=== PATIENT | female | born 1995 | race Caucasian/White ===

== ENCOUNTER 2018-03-01 23:46 | Emergency (ER) | END 2018-03-02 03:44 | disposition home or self-care (01) ==

== ENCOUNTER 2018-11-03 22:45 | Emergency (ER) | payer OTHER ==
[~2018-11-03] VITALS: Ht 160 cm; Wt 77.2 kg
[~2018-11-03 22:45] MED LIST: IBUP-1542 PO
[2018-11-03 23:02] VITALS: Ht 160 cm; Wt 77.2 kg
[2018-11-03] MEDS ORDERED: ACETAMINOPHEN 500 MG TAB PO STA (23:31)
--- NOTE | 2018-11-03 23:31 | ERD ---
ER Documentation Chief Complaint Chief Complaint C/O PELVIC CRAMPING X2 DAYS, 6 WEEKS PREG, - VB HPI This is a 23-year-old female presents emergency department with complaints of pelvic cramping, pelvic pain for about 2 days. Stated that she is 6 weeks . Stated that she visited her OB doctor 2 weeks ago and was informed t hat her is normal but was not told of her expected date of delivery.. LMP: 10/06/2018. DAVID: Unknown. Denies headache, head injury, loss of consciousness, dizziness, neck pain, neck stiffness, throat pain, difficulty swallowing, difficulty breathing lying flat, shoulder pain, chest pain, back pain, nausea, vomiting, constipation, diarrhea, urinary symptoms, loss of bowel and bladder control, trauma, injury, falls, difficulty walking due to pain, numbness or tingling sensation, calf pain, recent travel, recent major surgery in the last 3 weeks, calf pain, recent long travel, recent exposure to any illness, recent antibiotic use in the last 3 months, fever, chills, seizures. Past medical history: Surgical history: Social: Denies smoking, use of alcoholic beverages, use of illegal drugs. ROS All systems reviewed and are negative except as per history of present illness. Medications Home Meds Active Scripts Vit No.124/Iron/FA ( Vitamin Tablet) 1 Each Tablet, 1 EACH PO DAILY, #30 TAB Prov:SASCHA ALVARENGA F 11/04/18 Acetaminophen* (Tylophen*) 500 Mg Capsule, 1 CAP PO Q6H PRN for PAIN AND OR ELEVATED TEMP, #20 CAP Prov:GOBANHANSAR F 11/04/18 Ibuprofen* (Motrin*) 600 Mg Tab, 600 MG PO Q6H PRN for PAIN AND OR ELEVATED TEMP, #20 TAB Prov:JOSE E CERNA MD 03/02/18 Allergies Allergies: Coded Allergies: No Known Allergies (Unverified Allergy, Unknown, 08/01/14) PMhx/Soc Medical and Surgical Hx: pt denies Medical Hx, pt denies Surgical Hx Hx Alcohol Use: No Hx Substance Use: No Hx Tobacco Use: No Smoking Status: Never smoker Physical Exam Vitals Physical Exam Const: No acute distress Head: Atraumatic Eyes: Normal Conjunctiva ENT: Normal External Ears, Nose and Mouth. Neck: Full range of motion. No meningismus. Resp: Clear to auscultation bilaterally Cardio: Regular rate and rhythm, no murmurs Abd: Soft, non tender, non distended. Normal bowel sounds. Negative Curtis sign but negative Rosette sign (heel jar test). Negative psoas sign. Negative Rovsing sign. No CVA tenderness. Ambulatory with steady gait without pain to lower abdomen. Skin: No petechiae or rashes. Color appears normal for ethnicity. No skin tenting. No signs of severe dehydration. Back: No midline or flank tenderness Ext: No cyanosis, or edema. There is no lower extremity edema. Neur: Awake and alert. No neurological deficits. Psych: Normal Mood and Affect Result Diagram: 11/03/18 6447 Results 24 hrs Laboratory Tests Test 11/03/18 23:39 White Blood Count 6.6 10^3/ul Red Blood Count 4.78 10^6/ul Hemoglobin 10.9 g/dl Hematocrit 35.8 % Mean Corpuscular Volume 74.9 fl Mean Corpuscular Hemoglobin 22.8 pg Mean Corpuscular Hemoglobin Concent 30.4 g/dl Red Cell Distribution Width 17.0 % Platelet Count 215 10^3/UL Mean Platelet Volume 10.0 fl Immature Granulocytes % 0.300 % Neutrophils % 63.9 % Lymphocytes % 25.6 % Monocytes % 7.5 % Eosinophils % 2.4 % Basophils % 0.3 % Nucleated Red Blood Cells % 0.0 /100WBC Immature Granulocytes # 0.020 10^3/ul Neutrophils # 4.2 10^3/ul Lymphocytes # 1.7 10^3/ul Monocytes # 0.5 10^3/ul Eosinophils # 0.2 10^3/ul Basophils # 0.0 10^3/ul Nucleated Red Blood Cells # 0.0 10^3/ul Urine Color YELLOW Urine Clarity SLIGHTLY CLOUDY Urine pH 5.0 Urine Specific [place] 1.018 Urine Ketones NEGATIVE mg/dL Urine Nitrite NEGATIVE mg/dL Urine Bilirubin NEGATIVE mg/dL Urine Urobilinogen NEGATIVE mg/dL Urine Leukocyte Esterase TRACE Ingrid/ul Urine Microscopic RBC 1 /HPF Urine Microscopic WBC 2 /HPF Urine Squamous Epithelial Cells FEW /HPF Urine Hemoglobin NEGATIVE mg/dL Urine Glucose NEGATIVE mg/dL Urine Total Protein NEGATIVE mg/dl Sodium Level 138 mmol/L Potassium Level 3.6 mmol/L Chloride Level 106 mmol/L Carbon Dioxide Level 23 mmol/L Anion Gap 9 Blood Urea Nitrogen 10 mg/dl Creatinine 0.68 mg/dl Est Glomerular Filtrat Rate mL/min > 60 mL/min Glucose Level 100 mg/dl Calcium Level 9.4 mg/dl Total Bilirubin 0.4 mg/dl Direct Bilirubin 0.00 mg/dl Indirect Bilirubin 0.4 mg/dl Aspartate Amino Transf (AST/SGOT) 29 IU/L Alanine Aminotransferase (ALT/SGPT) 33 IU/L Alkaline Phosphatase 88 IU/L Total Protein 7.7 g/dl Albumin 4.3 g/dl Globulin 3.40 g/dl Albumin/Globulin Ratio 1.26 Amylase Level 77 U/L Lipase 105 U/L Beta HCG, Quantitative 6184.0 mIU/ml Current Medications Medications Dose Sig/Nurys Start Time Status Last (Trade) Ordered Route PRN Stop Time Admin Dose Reason Admin 500 mg ONCE STAT 11/03/18 DC 11/03/18 Acetaminophen PO 23:31 23:46 (Tylenol 11/03/18 23:33 Tab) Procedures/MDM Diagnostic tests: Urinalysis: Reviewed. Culture urine: Sent. Beta hCG quantitative: 6184. Type and Rh: O Positive. OB ultrasound: Intrauterine of unknown viability at approximately 5 weeks 3 days by gestational sac size. Treatment: Tylenol. Re-evaluation: No episode of emesis here in the emergency department. Denies headache, dizziness, neck pain, chest pain, back pain, abdominal pain. Negative Curtis sign. Negative Rosette sign (heel jar test). Negative psoas sign. Negative Rovsing sign. No CVA tenderness. Ambulatory with steady gait. Rombe rg test negative. No neurological deficit. Differential diagnosis I have low suspicion for sepsis, pyelonephritis, ectopic , hemorrhaging, obstructing kidney stones, septic stone, nephrolithiasis, demise. Final diagnosis: Pelvic pain in . Prescription: Tylenol. vitamins. Follow-up with OB in the next 24-48 hours. Come back here in the emergency department for any new symptoms or any worsening symptoms. All questions and concerns were answered. Patient and family members verbalized understanding and agreed with plan of care. Hemodynamically stable on discharge. Departure Diagnosis: Primary Impression: Pelvic pain complicating Condition: Stable Additional Instructions: Follow-up with OB in the next 24-48 hours. Come back here in the emergency department for any new symptoms or any worsening symptoms. SASCHA ALVARENGA Nov 03, 2018 23:31
[2018-11-04] MEDS ORDERED: PREN-93 PO (05:35)
[2018-11-04] MEDS ORDERED: ACET500C5 PO (05:35)
[2018-11-04 05:44] VITALS: BP 111/73; PULSE 88; RESP 16
== END 2018-11-04 05:45 | disposition home or self-care (01) ==
LOC: FTE 22:45
DX: O26.891 Other specified pregnancy related conditions, first trimester (principal); R10.2 Pelvic and perineal pain; Z3A.01 Less than 8 weeks gestation of pregnancy
CPT/HCPCS: 36415; 76801; 76817; 80053; 81001; 82150; 83690; 84702; 85025; 86850; 86900; 86901; 87086; Z7502; Z7610